=== PATIENT | female | born 1975 | race Caucasian/White ===

== ENCOUNTER → 2017-02-11 | Outpatient (CLI) | payer OTHER ==
[~2017-02-11] MED LIST: IBU600 MG PO; PERCOCET 325 MG1 TA2 PO; PRENATAL1 TA1 PO
== END ==
LOC: MC.RAD 01-25 08:00
DX: Z12.31 Encounter for screening mammogram for malignant neoplasm of breast (principal)

== ENCOUNTER → 2017-11-04 | Outpatient (CLI) | payer OTHER | LOC: COL.RAD 07:58 | DX: J34.1 Cyst and mucocele of nose and nasal sinus (principal); R59.0 Localized enlarged lymph nodes | CPT/HCPCS: Q9967 ==

== ENCOUNTER → 2020-06-14 | Outpatient (CLI) | payer OTHER | LOC: MC.RAD 09:30 | DX: Z12.31 Encounter for screening mammogram for malignant neoplasm of breast (principal); Z98.82 Breast implant status ==

== ENCOUNTER 2022-03-16 10:30 | Outpatient (RCR) | payer OTHER ==
[~2022-03-16 10:30] MED LIST changes: +AMOXICILLIN 8751 TAB PO; +NORCO 325 MG-51 TAB PO
== END 2022-03-17 | disposition home or self-care (01) ==
LOC: WSST
DX: F07.81 Postconcussional syndrome (principal); S09.90XD Unspecified injury of head, subsequent encounter; R41.3 Other amnesia

== ENCOUNTER 2022-03-30 09:00 | Outpatient (RCR) | payer OTHER | END 2022-04-17 | disposition home or self-care (01) | LOC: WSST | DX: F07.81 Postconcussional syndrome (principal); R41.3 Other amnesia; S09.90XS Unspecified injury of head, sequela ==

== ENCOUNTER → 2022-09-11 | Outpatient (CLI) | payer OTHER | LOC: MC.RAD 08:59 | DX: Z12.31 Encounter for screening mammogram for malignant neoplasm of breast (principal) ==

== ENCOUNTER → 2023-10-28 | Outpatient (CLI) | payer OTHER | LOC: COL.RAD 13:08 | DX: R93.89 Abnormal findings on diagnostic imaging of other specified body structures (principal) | CPT/HCPCS: A9575 ==

== ENCOUNTER 2023-11-29 11:24 | Emergency (ER) | payer OTHER ==
[~2023-11-29] VITALS: Ht 165.1 cm; Wt 54.5 kg
[2023-11-29 11:30] VITALS: TEMP 97.6
[2023-11-29 12:34] LABS: BASO # 0.1 K/mm3 (0.0-0.2); BASO % 1.1 % (0.0-2.0); EOS # 0.1 K/mm3 (0.0-0.7); EOS % 1.5 % (0.0-4.0); GRAN % 63.3 % (42.2-75.2); LYMPH % 20.5 % (20.0-51.0); MEAN CELL VOLUME 95 fl (80.0-100.0); MEAN CORPUSCULAR HEMOGLOBIN 30 pg (27-31); MEAN CORPUSCULAR HGB CONC 32 g/dl (33.0-37.0); MEAN PLATELET VOLUME 10.3 fl (7.4-10.4); MONO # 0.6 K/mm3 (0.1-0.6); MONO % 13.4 % (1.7-9.3); PLATELET COUNT 297 K/mm3 (130-400); RED BLOOD COUNT 3.29 M/mm3 (4.10-5.30); REDCELL DISTRIBUTION WIDTH-CV 13.3 % (11.5-14.5)
[2023-11-29 12:37] LABS: HEMATOCRIT 31.1 % (37.0-47.0)
[2023-11-29 12:48] LABS: ALBUMIN 3.8 gm/dL (3.5-5.0); BILIRUBIN,TOTAL 0.4 mg/dL (0.2-1.2); C-REACTIVE PROTEIN 0.08 mg/dL (0.00-0.50); CALCIUM 8.8 mg/dL (8.4-10.2); CREATININE, serum 0.69 mg/dL (0.57-1.11); POTASSIUM 3.9 mmol/L (3.5-4.5); TOTAL PROTEIN 6.5 gm/dL (6.2-8.1)
[2023-11-29 13:00] LABS: ERYTHROCYTE SEDIMENTATION RATE 1 mm/hr (0-20)
[2023-11-29] MEDS ORDERED: Iohexol 300 - 100 ML VIAL IV ONE (13:44)
[2023-11-29] MEDS ORDERED: NS 100 ML IV SCH (13:45)
[2023-11-29] MEDS ORDERED: NORCO 325 MG-51 TAB PO (15:00)
[2023-11-29] MEDS ORDERED: ROBAXIN 50500 MG/TAB PO (15:00)
[2023-11-29 15:39] VITALS: BP 110/70; PULSE 63
== END 2023-11-29 15:40 | disposition home or self-care (01) ==
LOC: COL.ER 11:24
PROVIDERS: Physician Assistant
DX: M54.2 Cervicalgia (principal); Z98.890 Other specified postprocedural states; Z86.011 Personal history of benign neoplasm of the brain; Z91.040 Latex allergy status
CPT/HCPCS: Q9967